=== PATIENT | male | born 2000 | race Hispanic/Latino ===

== ENCOUNTER 2023-08-03 19:14 | Emergency (ER) | payer BC ==
[~2023-08-03] VITALS: Ht 167.6 cm; Wt 87.1 kg
[2023-08-03] MEDS ORDERED: AMOX1TAB16 PO (19:44)
[2023-08-03] MEDS ORDERED: TETANUS/DIPHTHERIA TOXOID [ADULT] 0.5 ML VIAL IM ONE (20:00)
[2023-08-03] MEDS ORDERED: AMOX/CLAV 875/125MG TAB PO ONE (20:00)
[2023-08-03] MEDS ORDERED: LORAZEPAM 2 MG/ML 1 ML VIAL IM ONE (20:00)
[2023-08-03 20:54] VITALS: BP 129/84; PULSE 74; RESP 18; O2SAT 98
== END 2023-08-03 21:01 | disposition home or self-care (01) ==
LOC: EDH 19:14
DX: S80.871A Other superficial bite, right lower leg, initial encounter (principal); W54.0XXA Bitten by dog, initial encounter; Y93.89 Activity, other specified; Y92.89 Other specified places as the place of occurrence of the external cause; Y99.8 Other external cause status
CPT/HCPCS: 90471; 90714